=== PATIENT | female | born 1950 | race Caucasian/White ===

== ENCOUNTER 2021-06-12 14:40 | Outpatient (REF) | payer MEDICARE, SELFPAY | END 2021-06-12 14:41 | disposition home or self-care (01) | LOC: HO.LNP 14:40 | PROVIDERS: Visit Provider Physician Assistant Medical | DX: N39.0 Urinary tract infection, site not specified (principal) | CPT/HCPCS: 87086; 87088; 87186 ==

== ENCOUNTER 2021-10-30 12:57 | Outpatient (REF) | payer MEDICARE, SELFPAY ==
[2021-10-30 13:40] LABS: MANUAL DIFF FLAG NO
[2021-10-30 13:45] LABS: Basophils Percent Auto 0.3 % (0-2); Eosinophils Absolute Auto 0.2 X10*3/uL (0.0-0.4); Hematocrit 30.3 % (37.0-47.0); Hemoglobin 9.6 g/dl (12.0-16.0); Imm Gran Abs Auto 0.09 X10*3/uL (0.00-0.03); Imm Gran Pct Auto 0.7 % (0.0-0.4); Lymphocytes Absolute Auto 0.8 X10*3/uL (1.2-4.9); Lymphocytes Percent Auto 6.4 % (20-40); Mean Corpuscular HGB Conc 31.7 g/dl (31.0-35.0); Mean Corpuscular Hemoglobin 29.4 pg (27.0-33.0); Mean Corpuscular Volume 92.7 fL (80.0-98.0); Monocytes Percent Auto 8.4 % (2-11); Neutrophils Absolute Auto 10.1 x10*3/uL (2.0-8.3); Neutrophils Percent Auto 82.2 % (45-73); Platelet Count 293 X10*3/uL (160-400); Red Blood Count 3.27 X10*6/uL (4.20-5.50); Red Cell Distribution Width 14.4 % (11.0-16.0); White Blood Count 12.3 X10*3/uL (4.8-10.8)
[2021-10-30 14:03] LABS: Estimated Average Glucose 197 mg/dL; Hemoglobin A1c % 8.5 %
[2021-10-30 14:09] LABS: Alanine Aminotransferase 10 U/L (0-31); Anion Gap 12 (12-20); Aspartate Amino Transferase 9 U/L (5-31); Blood Urea Nitrogen 38 mg/dL (9-16); Calcium 8.6 mg/dL (8.4-10.2); Carbon Dioxide 26 mmol/L (22-29); Chloride 106 mmol/L (96-108); Cholesterol 133 mg/dL; Estimated Glomerular Filt Rate 34; Glucose Fasting 152 mg/dL (60-99); HDL Cholesterol 57 mg/dL; LDL Cholesterol Calculated 64 mg/dl; Potassium 4.1 mmol/L (3.3-5.1); Sodium 140 mmol/L (135-145); Triglycerides 64 mg/dL
[2021-10-30 14:30] LABS: Vitamin D 25-OH Total 28.1 ng/mL (>30)
== END 2021-10-30 12:58 | disposition home or self-care (01) ==
LOC: HO.HMGCLDS 12:57
PROVIDERS: PCP Internal Medicine; Visit Provider Internal Medicine
DX: D64.9 Anemia, unspecified (principal); E78.5 Hyperlipidemia, unspecified; I25.10 Atherosclerotic heart disease of native coronary artery without angina pectoris; I12.9 Hypertensive chronic kidney disease with stage 1 through stage 4 chronic kidney disease, or unspecified chronic kidney disease; N18.9 Chronic kidney disease, unspecified; E11.22 Type 2 diabetes mellitus with diabetic chronic kidney disease; N17.9 Acute kidney failure, unspecified; Z78.0 Asymptomatic menopausal state
CPT/HCPCS: 36415; 80048; 80061; 82306; 83036; 84450; 84460; 85025

== ENCOUNTER 2022-05-06 10:28 | Outpatient (REF) | payer MEDICARE, MEDICAID, SELFPAY ==
[2022-05-06 12:31] LABS: B Type Natriuretic Peptide 75 pg/mL (<100)
[2022-05-06 13:53] LABS: MANUAL DIFF FLAG NO
[2022-05-06 14:00] LABS: Basophils Absolute Auto 0.1 X10*3/uL (0.0-0.2); Basophils Percent Auto 0.6 % (0-2); Eosinophils Absolute Auto 0.1 X10*3/uL (0.0-0.4); Eosinophils Percent Auto 1.3 % (0-4); Hematocrit 31.2 % (37.0-47.0); Hemoglobin 10.2 g/dl (12.0-16.0); Imm Gran Abs Auto 0.07 X10*3/uL (0.00-0.03); Imm Gran Pct Auto 0.7 % (0.0-0.4); Lymphocytes Absolute Auto 1.1 X10*3/uL (1.2-4.9); Mean Corpuscular HGB Conc 32.7 g/dl (31.0-35.0); Mean Corpuscular Hemoglobin 31.2 pg (27.0-33.0); Mean Corpuscular Volume 95.4 fL (80.0-98.0); Mean Platelet Volume 10.2 fL (9.4-12.3); Monocytes Absolute Auto 0.9 X10*3/uL (0.1-1.2); Monocytes Percent Auto 8.8 % (2-11); Neutrophils Absolute Auto 8.5 x10*3/uL (2.0-8.3); Neutrophils Percent Auto 78.6 % (45-73); Platelet Count 317 X10*3/uL (160-400); Red Blood Count 3.27 X10*6/uL (4.20-5.50); Red Cell Distribution Width 14.1 % (11.0-16.0); White Blood Count 10.7 X10*3/uL (4.8-10.8)
[2022-05-06 14:32] LABS: Alanine Aminotransferase 12 U/L (0-31); Anion Gap 19 (12-20); Aspartate Amino Transferase 12 U/L (5-31); Blood Urea Nitrogen 29 mg/dL (9-16); Calcium 7.5 mg/dL (8.4-10.2); Carbon Dioxide 23 mmol/L (22-29); Chloride 104 mmol/L (96-108); Cholesterol 155 mg/dL; Estimated Glomerular Filt Rate 38; Glucose Fasting 154 mg/dL (60-99); HDL Cholesterol 55 mg/dL; Iron 44 mcg/dL (30-160); LDL Cholesterol Calculated 62 mg/dl; Percent Iron Saturation 16 % (15-50); Potassium 3.6 mmol/L (3.3-5.1); Sodium 142 mmol/L (135-145); Total Iron Binding Capacity 278 mcg/dL (228-428); Triglycerides 191 mg/dL; Unsaturated Iron Binding 234 ug/dL
[2022-05-06 14:45] LABS: Vitamin D 25-OH Total 31.3 ng/mL (>30)
== END 2022-05-06 10:29 | disposition home or self-care (01) ==
LOC: HO.HMGCLDS 10:28
PROVIDERS: PCP Internal Medicine; Visit Provider Internal Medicine
DX: E78.5 Hyperlipidemia, unspecified (principal); I87.2 Venous insufficiency (chronic) (peripheral); N18.30 Chronic kidney disease, stage 3 unspecified; M79.89 Other specified soft tissue disorders; D64.9 Anemia, unspecified
CPT/HCPCS: 36415; 80048; 80061; 82306; 83540; 83880; 84450; 84460; 85025

== ENCOUNTER 2022-11-26 09:56 | Outpatient (REF) | payer MEDICARE, MEDICAID, SELFPAY ==
[2022-11-26 11:17] LABS: MANUAL DIFF FLAG NO
[2022-11-26 11:52] LABS: Basophils Absolute Auto 0.1 X10*3/uL (0.0-0.2); Basophils Percent Auto 0.7 % (0-2); Eosinophils Absolute Auto 0.2 X10*3/uL (0.0-0.4); Eosinophils Percent Auto 2.5 % (0-4); Hematocrit 30.7 % (37.0-47.0); Hemoglobin 9.9 g/dl (12.0-16.0); Imm Gran Abs Auto 0.04 X10*3/uL (0.00-0.03); Imm Gran Pct Auto 0.5 % (0.0-0.4); Lymphocytes Absolute Auto 0.7 X10*3/uL (1.2-4.9); Lymphocytes Percent Auto 8.4 % (20-40); Mean Corpuscular HGB Conc 32.2 g/dl (31.0-35.0); Mean Corpuscular Hemoglobin 30.8 pg (27.0-33.0); Mean Corpuscular Volume 95.6 fL (80.0-98.0); Mean Platelet Volume 9.7 fL (9.4-12.3); Monocytes Absolute Auto 0.7 X10*3/uL (0.1-1.2); Neutrophils Percent Auto 79.9 % (45-73); Platelet Count 302 X10*3/uL (160-400); Red Blood Count 3.21 X10*6/uL (4.20-5.50); Red Cell Distribution Width 13.1 % (11.0-16.0); White Blood Count 8.8 X10*3/uL (4.8-10.8)
[2022-11-26 12:15] LABS: Alanine Aminotransferase 9 U/L (0-31); Aspartate Amino Transferase 13 U/L (5-31); Cholesterol 152 mg/dL; HDL Cholesterol 49 mg/dL; Iron 42 mcg/dL (30-160); LDL Cholesterol Calculated 73 mg/dl; Percent Iron Saturation 18 % (15-50); Total Iron Binding Capacity 235 mcg/dL (228-428); Triglycerides 153 mg/dL; Unsaturated Iron Binding 193 ug/dL
[2022-11-26 12:19] LABS: Estimated Average Glucose 166 mg/dL; Hemoglobin A1c % 7.4 %
[2022-11-26 17:34] LABS: Appearance Urine Turbid; Color Urine Dark Yellow; Glucose Urine UA Negative (Negative); Leukocyte Esterase Urine Large (3+) (Negative); Nitrite Urine Positive (Negative); PH 5.5 (5.0-9.0); UMIC TRIGGER UACC YES; Urine Blood Moderate (2+) (Negative); Urine Ketones Negative (Negative); Urine Protein 100 (2+) mg/dL (Neg-Trace)
[2022-11-26 17:43] LABS: Bacteria Urine 4+ (None Seen); Hyaline Casts Urine 0-2 /LPF (0-2); UACC Culture Trigger YES; WBC Urine >50 /HPF (0-5)
== END 2022-11-26 09:57 | disposition home or self-care (01) ==
LOC: HO.HMGCLDS 09:56
PROVIDERS: PCP Internal Medicine; Visit Provider Internal Medicine
DX: K22.10 Ulcer of esophagus without bleeding (principal); D64.9 Anemia, unspecified; E11.29 Type 2 diabetes mellitus with other diabetic kidney complication; E78.5 Hyperlipidemia, unspecified; R35.0 Frequency of micturition
CPT/HCPCS: 36415; 80061; 81001; 82306; 83036; 83540; 84450; 84460; 85025; 87086; 87088; 87186

== ENCOUNTER 2023-06-07 10:12 | Outpatient (AMB) | payer MEDICARE, MEDICAID, SELFPAY ==
[2023-06-07 11:44] VITALS: BP 128/70; PULSE 74; TEMP 36.2; O2SAT 96; BMI 31.8
--- NOTE | 2023-06-07 11:44 | AM.OFFWIN_ITS ---
Intake Vital Signs 06/07/23 11:44 Height 5 ft 8 in Weight 209 lb BMI 31.8 BP 128/70 Blood Pressure Location Rt brachial Position Sitting Pulse 74 Pulse Source Pulse Oximeter Temp 97.1 F Pulse Oximetry (%) 96 Oxygen Delivery Method Room Air Intake Visit Reasons: EP 1 month of Vomiting/Diarrhea Intake Note: patient is here today for 1mo. of vomiting/diarrhea Patient Tobacco Use Status: Former Tobacco user (over 10 years ago) Allergies acetaminophen [From Percocet] Adverse Reaction (Severe, Verified 06/07/23 12:09) tac oxycodone [From Percocet] Adverse Reaction (Severe, Verified 06/07/23 12:09) tac tramadol Adverse Reaction (Unknown, Verified 06/07/23 12:09) heart race Medication List - Last Reconciled 06/07/23 by Bharath Cotton MD acetaminophen 650 mg PO Q6H PRN aspirin 81 mg PO DAILY atorvastatin 20 mg PO DAILY blood sugar diagnostic As directed cholecalciferol (vitamin D3) 1,250 mcg PO QWEEK 3 months ciprofloxacin HCl 250 mg PO BID diclofenac sodium 1% (Arthritis Pain (diclofenac)) 4 grams topical QID dicyclomine 20 mg PO TID diphenoxylate-atropine 2.5-0.025 mg (Lomotil) 1 tab PO BID PRN escitalopram oxalate 10 mg PO DAILY estradiol mcg vaginal ferrous fumarate 325 mg PO DAILY flash glucose sensor (FreeStyle Regan 14 Day Sensor kit) As directed insulin glargine 15 units subcut QPM insulin lispro T.i.d. a.c. per sliding scale coverage subcut; loperamide 4 mg PO Q6H lorazepam 0.5 mg PO BEDTIME PRN mirabegron ER 50 mg PO DAILY nitrofurantoin monohyd/m-cryst 100 mg 100 mg PO Q12H 10 days omeprazole 40 mg PO BID pen needle, diabetic As directed propranolol ER 120 mg PO DAILY tizanidine 2 mg PO BID PRN Do you need a note to return to daycare/school/sports/work: No HPI EP 1 month of Vomiting/Diarrhea HPI Details 73-year-old female presents to the [facility] for a sick [facility]. She is accompanied by caregiver. Patient is complaining of diarrhea for the past month. At baseline she is incontinent to urine. However in the past month she has become incontinent to stool at times. No blood or mucus. The diarrhea is intermittent. In 2016 patient underwent treatment for rectal cancer. This included surgery, radiation and chemotherapy. [facility] Medical History Anxiety and depression Stasis dermatitis of both legs Urinary incontinence, urge OAB (overactive bladder) Pedal edema Stage 3 chronic kidney disease Itching in the vaginal area Chronic kidney disease Erosive esophagitis Normocytic normochromic anemia Acute kidney injury superimposed on CKD Compression deformity of vertebra Degenerative lumbar spinal stenosis Rectal adenocarcinoma Coronary artery disease Thyroid nodule Type 2 diabetes mellitus with other diabetic kidney complication Dyslipidemia Lumbar back pain with radiculopathy affecting right lower extremity Recurrent UTI (urinary tract infection) Normal pressure hydrocephalus GERD (gastroesophageal reflux disease) Surgical History H/O heart artery stent S/P MENTAL HEALTH NURSE shunt History of spinal surgery History of colon resection History of tooth extraction History of elbow surgery History of tubal ligation History of section Family History Father Alzheimer disease Mother Diabetes mellitus Hypertension CAD (coronary artery disease) Social History Housing: Apartment Alcohol intake: never Patient Tobacco Use Status: Former Tobacco user (over 10 years ago) e-Cigarette/Vaping Use: Never Used service: No Current occupational status: disabled Cognitive needs: No Hearing needs: No Vision needs: Yes Physical Exam Vital Signs: Last Vital Signs Temp 97.1 F 06/07/23 11:44 Pulse 74 06/07/23 11:44 BP 128/70 06/07/23 11:44 Pulse Ox 96 06/07/23 11:44 Oxygen Delivery Method Room Air 06/07/23 11:44 BMI result Body Mass Index 31.8 Const General: cooperative and healthy appearing Nutritional Appearance: well nourished Orientation/consciousness: patient oriented x3 Limitations: no limitations HEENT Head: Yes normal to inspection Eyes General: appearance normal, both eyes and all related structures Neck Neck: Yes normal visual inspection Chest Chest palpation & inspection: normal palpation of entire chest wall Resp Effort & Inspection: normal respiratory effort Neuro General: patient oriented x3 Assessment & Plan Assessment & Plan (1) Diarrhea: Code(s): R19.7 - Diarrhea, unspecified Plan: Blood work has been ordered. Cipro and Lomotil ordered. Will call with results of the test. Orders: Orders Basic Metabolic Panel Today R19.7 - Diarrhea, unspecified Complete Blood Count no Diff Today R19.7 - Diarrhea, unspecified Liver Panel Today R19.7 - Diarrhea, unspecified Thyroid Stimulating Hormone Today R19.7 - Diarrhea, unspecified Erythrocyte Sedimentation Rate Today R19.7 - Diarrhea, unspecified Medications: New ciprofloxacin HCl 250 mg PO BID 14 tabs 0RF diphenoxylate-atropine 2.5-0.025 mg (Lomotil) 1 tab PO BID PRN 10 tabs 0RF diarrhea Coding Level of Care Code Est Pt Level 4 (36287) Diagnoses Diarrhea R19.7
== END 2023-06-07 12:26 | disposition home or self-care (01) ==
PROVIDERS: PCP Internal Medicine; Visit Provider Internal Medicine
DX: R19.7 Diarrhea, unspecified (principal)
CPT/HCPCS: 99214

== ENCOUNTER 2023-06-07 12:05 | Outpatient (REF) | payer MEDICARE, MEDICAID, SELFPAY ==
[2023-06-07 13:24] LABS: Hemoglobin 10.1 g/dl (12.0-16.0); Mean Corpuscular HGB Conc 30.6 g/dl (31.0-35.0); Mean Corpuscular Hemoglobin 27.8 pg (27.0-33.0); Mean Corpuscular Volume 90.9 fL (80.0-98.0); Mean Platelet Volume 10.2 fL (9.4-12.3); Platelet Count 378 X10*3/uL (160-400); Red Blood Count 3.63 X10*6/uL (4.20-5.50); Red Cell Distribution Width 14.8 % (11.0-16.0); White Blood Count 8.9 X10*3/uL (4.8-10.8)
[2023-06-07 14:07] LABS: Erythrocyte Sedimentation Rate 92 MM/HR (0-20)
[2023-06-07 14:26] LABS: Alanine Aminotransferase 9 U/L (0-31); Albumin Level 3.7 g/dL (3.5-5.0); Alkaline Phosphatase 107 U/L (39-117); Anion Gap 20 (12-20); Aspartate Amino Transferase 13 U/L (5-31); Bilirubin Direct 0.1 mg/dL (0.0-0.5); Bilirubin Total 0.3 mg/dL (0.0-1.0); Blood Urea Nitrogen 13 mg/dL (9-16); Calcium 7.6 mg/dL (8.4-10.2); Carbon Dioxide 21 mmol/L (22-29); Chloride 101 mmol/L (96-108); Estimated Glomerular Filt Rate 36; Glucose Random 170 mg/dL (60-115); Potassium 3.7 mmol/L (3.3-5.1); Sodium 138 mmol/L (135-145); Total Protein 7.7 g/dL (6.5-8.0)
[2023-06-07 14:34] LABS: Thyroid Stimulating Hormone 1.06 uIU/mL (0.32-4.0)
== END 2023-06-07 12:06 | disposition home or self-care (01) ==
LOC: HO.HMGCLDS 12:05
PROVIDERS: PCP Internal Medicine; Visit Provider Internal Medicine
DX: R19.7 Diarrhea, unspecified (principal)
CPT/HCPCS: 36415; 80048; 80076; 84443; 85027; 85652

== ENCOUNTER 2023-06-09 11:06 | Outpatient (AMB) | payer MEDICARE, MEDICAID, SELFPAY ==
[2023-06-09 11:18] VITALS: BP 140/72; PULSE 65; O2SAT 97; BMI 31.5
--- NOTE | 2023-06-09 11:18 | A.OFFPC_ITS ---
Vital Signs 06/09/23 11:18 Height 5 ft 8 in Weight 207 lb 6 oz BMI 31.5 BP 140/72 H Blood Pressure Location Lt brachial Position Sitting Pulse 65 Pulse Source Pulse Oximeter Pulse Oximetry (%) 97 Oxygen Delivery Method Room Air Intake Visit Reasons: Follow Up from urgent Care diarrhea Intake Note: pt is following up from urgent care. pt still continues to have diarrhea and she has had vomiting Allergies acetaminophen [From Percocet] Adverse Reaction (Severe, Verified 06/09/23 11:56) tac oxycodone [From Percocet] Adverse Reaction (Severe, Verified 06/09/23 11:56) tac tramadol Adverse Reaction (Unknown, Verified 06/09/23 11:56) heart race Medication List - Last Reconciled 06/09/23 by Cassie Dominguez MD acetaminophen 650 mg PO Q6H PRN aspirin 81 mg PO DAILY atorvastatin 20 mg PO DAILY blood sugar diagnostic As directed cholecalciferol (vitamin D3) 1,250 mcg PO QWEEK 3 months ciprofloxacin HCl 250 mg PO BID diclofenac sodium 1% (Arthritis Pain (diclofenac)) 4 grams topical QID dicyclomine 20 mg PO TID diphenoxylate-atropine 2.5-0.025 mg (Lomotil) 1 tab PO BID PRN escitalopram oxalate 10 mg PO DAILY estradiol mcg vaginal flash glucose sensor (FreeStyle Regan 14 Day Sensor kit) As directed insulin glargine 15 units subcut QPM insulin lispro T.i.d. a.c. per sliding scale coverage subcut; loperamide 4 mg PO Q6H lorazepam 0.5 mg PO BEDTIME PRN mirabegron ER 50 mg PO DAILY omeprazole 40 mg PO BID pen needle, diabetic As directed propranolol ER 120 mg PO DAILY tizanidine 2 mg PO BID PRN Tobacco use date assessed: 06/09/23 Fall risk assessment: No Falls in past year Last assessed Fall Risk: 06/09/23 Dental Screening Dental Screen Date: 06/09/23 Did you have a dental visit in the last 12 months?: No Did you have a dental problem in the last 6 months where you did not have access to dental care?: No Was dental information given to patient?: No HPI Follow Up from urgent Care diarrhea HPI Details 73-year-old lady with history of rectal cancer status post chemotherapy and radiation therapy in 2016 with subsequent development of radiation proctitis, here today for follow-up after recent urgent care visit complaining of diarrhea described as loose stool without any blood seen, occurring intermittently over the last month. Patient has urinary incontinence but now started developing occasional stool incontinence as well. Denies any accompanying abdominal pain, has been a febrile, but still having intermittent episodes of diarrhea occasionally mixed with some semi-formed stool and still has some episodes of nausea and vomiting reported.. Was prescribe ciprofloxacin and taking Lomotil which affords only temporary relief. [facility] Medical History (Updated 07/07/23 @ 02:42 by Cassie Dominugez MD) History of rectal cancer Radiation induced proctitis Anxiety and depression Stasis dermatitis of both legs Urinary incontinence, urge OAB (overactive bladder) Pedal edema Stage 3 chronic kidney disease Itching in the vaginal area Chronic kidney disease Erosive esophagitis Normocytic normochromic anemia Acute kidney injury superimposed on CKD Compression deformity of vertebra Degenerative lumbar spinal stenosis Rectal adenocarcinoma Coronary artery disease Thyroid nodule Type 2 diabetes mellitus with other diabetic kidney complication Dyslipidemia Lumbar back pain with radiculopathy affecting right lower extremity Recurrent UTI (urinary tract infection) Normal pressure hydrocephalus GERD (gastroesophageal reflux disease) Surgical History H/O heart artery stent S/P EXHAUSTER ENGINEER shunt History of spinal surgery History of colon resection History of tooth extraction History of elbow surgery History of tubal ligation History of section Family History Father Alzheimer disease Mother Diabetes mellitus Hypertension CAD (coronary artery disease) Social History Housing: Apartment Alcohol intake: never Patient Tobacco Use Status: Former Tobacco user e-Cigarette/Vaping Use: Never Used service: No Current occupational status: disabled Cognitive needs: No Hearing needs: No Vision needs: Yes Questionnaire Thrive Questionnaire Date Thrive assessed: 11/26/22 RENO-7 AMB Questionnaire RENO-7 Date RENO - 7 assessed: 11/26/22 Source: Developed by Drs. Humphrey Lemons, Katherine Mark, Blayne Espinoza and colleagues, with an educational wayne from [employer]. Review of Systems Const Reports as per HPI ENT Reports no additional complaints Card Denies chest pain at rest, Denies rapid heart rate, Denies irregular heart rhythm, Denies palpitations and Denies dyspnea Resp Denies chest congestion, Denies cough and Denies dyspnea GI Reports as per HPI, Denies melena, Denies bloating, Denies hematochezia and Denies dyspepsia Neuro Reports no additional complaints Endo Denies palpitations Shun/Lymph Denies easy bleeding and Denies easy bruising Physical exam (Primary Care) Vital Signs: Last Vital Signs Pulse 65 06/09/23 11:18 BP 140/72 H 06/09/23 11:18 Pulse Ox 97 06/09/23 11:18 Oxygen Delivery Method Room Air 06/09/23 11:18 BMI result Body Mass Index 31.5 Tobacco/Smoking Status: Tobacco use Status Tobacco use date assessed 06/09/23 06/09/23 11:26 Patient Tobacco Use Status Former Tobacco user (over 10 06/09/23 11:26 years ago) e-Cigarette/Vaping Use Never Used 06/09/23 11:26 Thrive Assessment: Date of Thrive Assessment Date Thrive assessed 11/26/22 06/09/23 11:26 Const Other: Alert oriented x3,no acute cardio-repsiratory distress, wheelchair-borne, assembler skylights present with patient Orientation/consciousness: patient oriented x3 HENMT General nose exam: No nasal discharge present Mouth: moist mucous membranes Neck Neck: Yes full ROM, Yes no lymphadenopathy, Yes supple and Yes no JVD Resp Auscultation: clear to auscultation bilaterally Cardio Other: S1-S2 present regular rate and rhythm GI Other: Soft, hyperactive bowel sounds, nontender, no mass palpated General: Yes no CVA tenderness Back/Spine/Pelvis Back: no CVA tenderness Skin General skin exam: no rashes or lesions noted and turgor normal Neuro General: patient oriented x3, moves all extremities, no focal motor deficits and CN's II-XI intact bilaterally Extrem General: Yes no joint enlargement, Yes no calf tenderness and Yes pedal edema Assessment and Plan Assessment & Plan (1) Diarrhea: Code(s): R19.7 - Diarrhea, unspecified Qualifiers: Diarrhea type: unspecified type Qualified Code(s): R19.7 - Diarrhea, unspecified Plan: Discontinue Lomotill, prescription sent for loperamide, to take as direct, avoid dairy, fried greasy foods, stay well-hydrated (2) Radiation induced proctitis: Code(s): K62.7 - Radiation proctitis (3) GERD (gastroesophageal reflux disease): Code(s): K21.9 - Gastro-esophageal reflux disease without esophagitis Plan: Continue omeprazole, and sucralfate started, to take as directed at least an hour before taking any medications . Plan Referred to gastroenterology clinic for further evaluation and management Orders: Referrals Gastroenterology Referral [id number] - Personal history of other malignant neoplasm of rectum, rectosigmoid junction, and anus, K62.7 - Radiation proctitis, R19.7 - Diarrhea, unspecified, K22.10 - Ulcer of esophagus without bleeding, K21.9 - Gastro-esophageal reflux disease without esophagitis Medications: New loperamide administer after each loose stool until symptoms controlled; do not exceed 8 mg per 24 hrs 2 mg PO Q4H PRN 30 caps 1RF loose stool sucralfate 10 mL PO BID 400 mL 0RF Discontinued diphenoxylate-atropine 2.5-0.025 mg Discontinued Reason: Doctor's Order 1 tab PO BID PRN 10 tabs 0RF diarrhea Coding Level of Care Code Est Pt Level 4 (75580) Diagnoses Diarrhea, unspecified type R19.7 Diarrhea type: unspecified type Radiation induced proctitis K62.7 GERD (gastroesophageal reflux disease) K21.9
== END 2023-06-09 12:56 | disposition home or self-care (01) ==
PROVIDERS: PCP Internal Medicine; Visit Provider Internal Medicine
DX: R19.7 Diarrhea, unspecified (principal); K62.7 Radiation proctitis; K21.9 Gastro-esophageal reflux disease without esophagitis
CPT/HCPCS: 99214